=== PATIENT | female | born 1965 | race Caucasian/White ===

== ENCOUNTER 2016-07-20 14:54 | Emergency (ER) | payer OTHER, MEDICARE | END 2016-07-20 17:19 | disposition home or self-care (01) | LOC: FER 14:54 | DX: S13.4XXA Sprain of ligaments of cervical spine, initial encounter (principal); S46.912A Strain of unspecified muscle, fascia and tendon at shoulder and upper arm level, left arm, initial encounter; M54.6 Pain in thoracic spine; E03.9 Hypothyroidism, unspecified; Z79.899 Other long term (current) drug therapy; Z98.890 Other specified postprocedural states; V49.50XA Passenger injured in collision with unspecified motor vehicles in traffic accident, initial encounter; Y92.410 Unspecified street and highway as the place of occurrence of the external cause | CPT/HCPCS: 72050; 72072; 73030; J1100; J1885 ==

== ENCOUNTER → 2021-06-28 | Emergency (ER) | payer MEDICARE ==
[~2021-06-28] MED LIST: DIAZEPAM5 MG PO; K-DUR20 MEQ PO; NORCO 5-325 TA1 EACH PO; NORTRIPTYLINE 225 MG PO; PANTOPRAZOLE SO40 MG PO; PERCOCET 5-3251 EACH PO; SYNTHROID25 MCG PO; TOPAMAX15 MG PO; ULTRAM50 MG PO
== END | disposition home or self-care (01) ==
LOC: FER 00:51
DX: S60.011A Contusion of right thumb without damage to nail, initial encounter (principal); X58.XXXA Exposure to other specified factors, initial encounter; Y92.89 Other specified places as the place of occurrence of the external cause; Y99.0 Civilian activity done for income or pay
CPT/HCPCS: 73130